=== PATIENT | female | born 1965 | race Caucasian/White ===

== ENCOUNTER 2017-02-20 10:49 | Inpatient (IN) | payer BC ==
[~2017-02-20] VITALS: Ht 167.6 cm; Wt 83.9 kg
[~2017-02-20 10:49] MED LIST: ATIVAN1 MG PO; COL250 PO; COLACE100 MG; COLACE100 MG PO; FLE10 PO; KEFLEX250 MG PO; LAC PO; LEVAQUIN250 MG PO; LORAZEPAM0.5 MG PO; METHADONE HCL5 MG PO; NOR10T PO; NORCO1 TA2 PO; PERCOCET1 TA2 PO; SERTRALINE HYDR25 MG PO; XARELTO10 M1 PO; XARELTO20 M1 PO
[2017-02-20 12:00] LABS: BASOPHIL % 0.3 % (0-2); PLATELET COUNT 208 x10^3mcL (130-400); RED CELL DISTRIBUTION WIDTH 13.4 % (11.5-14.5)
[2017-02-20 12:10] LABS: CALCIUM 9.6 mg/dL (8.5-10.1); CHLORIDE SERUM 104 mmol/L (98-107); GFR1 > 60 mL/min; GLUCOSE SERUM 105 mg/dL (74-106); POTASSIUM SERUM 4.3 mmol/L (3.5-5.1); SODIUM SERUM 139 mmol/L (136-145)
[2017-02-20 12:16] LABS: ALBUMIN 4.4 g/dL (3.4-5.0); ALKALINE PHOSPHATASE 120 U/L (46-116); ALT/SGPT 43 U/L (14-59); AMYLASE 101 U/L (25-115); AST/SGOT 33 U/L (15-37); BILIRUBIN TOTAL 0.49 mg/dL (0.20-1.00); LIPASE 116 IU/L (73-393)
[2017-02-20 12:20] LABS: TOTAL PROTEIN, SERUM 9.4 g/dL (6.4-8.2)
[2017-02-20] MEDS ORDERED: LACTULOSE10 GM/152 PO (14:16)
[2017-02-20] MEDS ORDERED: NOR10T PO (14:16)
[2017-02-20 14:45] VITALS: BP 118/80
[2017-02-20 18:01] VITALS: BP 134/69
[2017-02-20 18:05] LABS: CHOLESTEROL/HDL RATIO 3.5
[2017-02-20 18:35] LABS: FREE T4 1.27 ng/dL (0.76-1.46); FREE THYROXINE INDEX 2.5 ug/dL (1.4-4.5)
[2017-02-20 18:48] LABS: T3 TOTAL 1.11 ng/mL
[2017-02-20 21:02] VITALS: BP 98/66
[2017-02-21 01:56] LABS: microscopic required? YES; urine erythrocyte TRACE (NEGATIVE)
[2017-02-21 02:17] LABS: AMPHETAMINE QUAL UR NONE DETECTED (NEG <=1000)
[2017-02-21 04:30] VITALS: BP 108/62
[2017-02-21 06:21] LABS: CALCIUM 8.6 mg/dL (8.5-10.1); CARBON DIOXIDE 26.2 mmol/L (21-32); CHLORIDE SERUM 109 mmol/L (98-107); GFR1 > 60 mL/min; GLUCOSE SERUM 102 mg/dL (74-106); MAGNESIUM 2.3 mg/dL (1.8-2.4); PHOSPHOROUS 3.8 mg/dL (2.5-4.9); POTASSIUM SERUM 4.2 mmol/L (3.5-5.1); SODIUM SERUM 142 mmol/L (136-145)
[2017-02-21 06:29] LABS: BASOPHIL % 0.3 % (0-2); PLATELET COUNT 161 x10^3mcL (130-400); RED CELL DISTRIBUTION WIDTH 13.9 % (11.5-14.5)
== END 2017-02-21 08:09 | disposition left against medical advice (07) | DRG 388 ==
LOC: ED 10:49 → DU 13:25
PROVIDERS: Emergency Medicine; ADMIT Family Medicine
DX: K56.60 Unspecified intestinal obstruction (principal); N17.0 Acute kidney failure with tubular necrosis; K56.41 Fecal impaction; G89.29 Other chronic pain; Z90.710 Acquired absence of both cervix and uterus; Z86.718 Personal history of other venous thrombosis and embolism; Z95.0 Presence of cardiac pacemaker; Z88.6 Allergy status to analgesic agent; Z88.8 Allergy status to other drugs, medicaments and biological substances; Z83.3 Family history of diabetes mellitus; Z82.49 Family history of ischemic heart disease and other diseases of the circulatory system; Z80.3 Family history of malignant neoplasm of breast
CPT/HCPCS: 83880; 84439; J1170; J2405; J2550; J2765; J3010; J7030; Q0092

== ENCOUNTER 2017-06-30 17:17 | Inpatient (IN) | payer BC ==
[~2017-06-30] VITALS: Ht 167.6 cm; Wt 88.0 kg
[~2017-06-30 17:17] MED LIST changes: +LACTULOSE10 GM/152 PO
[2017-06-30 17:54] LABS: CALCIUM 9.7 mg/dL (8.5-10.1); CARBON DIOXIDE 31.9 mmol/L (21-32); CREATININE SERUM 1.1 mg/dL (0.6-1.0); POTASSIUM SERUM 4.2 mmol/L (3.5-5.1)
[2017-06-30 17:59] LABS: BILIRUBIN TOTAL 0.5 mg/dL (0.20-1.00)
[2017-06-30 18:08] LABS: PLATELET COUNT 230 x10^3mcL (130-400)
[2017-06-30 18:16] LABS: TOTAL PROTEIN, SERUM 8.6 g/dL (6.4-8.2)
[2017-06-30 18:18] LABS: BASOPHIL % 0 % (0-2)
[2017-06-30 20:26] LABS: CHOLESTEROL/HDL RATIO 3.7; MAGNESIUM 2.3 mg/dL (1.8-2.4); PHOSPHOROUS 3.7 mg/dL (2.5-4.9)
[2017-06-30 20:33] LABS: T3 TOTAL 1.08 ng/mL
[2017-06-30 20:53] LABS: FREE T4 2.18 ng/dL (0.76-1.46); FREE THYROXINE INDEX 3.1 ug/dL (1.4-4.5)
[2017-06-30 21:16] VITALS: BP 97/52
[2017-07-01 04:51] VITALS: BP 98/56
[2017-07-01 06:11] LABS: CALCIUM 8.7 mg/dL (8.5-10.1); CARBON DIOXIDE 29.7 mmol/L (21-32); CHLORIDE SERUM 108 mmol/L (98-107); GFR1 > 60 mL/min; GLUCOSE SERUM 98 mg/dL (74-106); MAGNESIUM 2.1 mg/dL (1.8-2.4); PHOSPHOROUS 3.6 mg/dL (2.5-4.9); POTASSIUM SERUM 3.8 mmol/L (3.5-5.1); SODIUM SERUM 143 mmol/L (136-145)
[2017-07-01 06:29] LABS: BASOPHIL % 0.1 % (0-2); PLATELET COUNT 216 x10^3mcL (130-400)
== END 2017-07-01 06:15 | disposition left against medical advice (07) | DRG 392 ==
LOC: ED 17:17 → DU 19:32
PROVIDERS: Emergency Medicine; ADMIT Family Medicine Sports Medicine
DX: R10.9 Unspecified abdominal pain (principal); Z90.710 Acquired absence of both cervix and uterus; Z83.3 Family history of diabetes mellitus; Z82.49 Family history of ischemic heart disease and other diseases of the circulatory system; E78.5 Hyperlipidemia, unspecified; E66.3 Overweight; Z68.31 Body mass index [BMI] 31.0-31.9, adult
CPT/HCPCS: 83880; 84439; 90658; J1170; J1200; J2405; J2765; J7030; Q9967

== ENCOUNTER 2019-09-13 01:41 | Inpatient (IN) | payer MEDICAID ==
[~2019-09-13] VITALS: Ht 167.6 cm; Wt 82.6 kg
[2019-09-13 01:42] VITALS: Ht 167.6 cm; Wt 82.6 kg
--- NOTE | 2019-09-13 01:58 | NUR ---
PT PRESENTS TO ED WITH C/C GENERALIZED CONSTANT ABD PAIN WITH "ROLLING WAVES OF PAIN." PATIENT UNABLE TO DESCRIBE TYPE OF PAIN BUT STATES IT IS 10/10 AND STRONG. PT REPORTS HX OF BOWEL BLOCKAGE. STS LAST TIME IT OCCURED WAS APPROX 1 YEAR AGO. PT REPORTS HX OF SEVERAL ABD SURGERIES. PT REPORTS NAUSEA AND VOMITING XAPPROX 5 TIMES. LAST BM WAS YESTERDAY AND SOFT. DENIES URINARY SYMPTOMS. DENIES FEVER. DENIES RECENT ILLNESS. TENDERNESS UPON PALPATION NOTED TO LLQ. CONNECTED TO MONITOR. DR JUNG AT BEDSIDE FOR MSE.
--- NOTE | 2019-09-13 02:02 | NUR ---
PT INSTRUCTED TO PROVIDE URINE ARMANDO. PT HAD FULL HYSTERECTOMY. MEDICATED WITH TORADOL AND ZOFRAN ORDERED. SEE EMAR.
--- NOTE | 2019-09-13 02:04 | NUR ---
PATIENT TAKEN TO CT. ERANFRRYAN ERICKSON BROUGHT TO BEDSIDE UPON PATIENT REQUEST.
--- NOTE | 2019-09-13 02:16 | NUR ---
LAB AT BEDSIDE.
[2019-09-13 02:36] LABS: BASOPHIL % 0.1 % (0-2); PLATELET COUNT 260 x10^3mcL (130-400); RED CELL DISTRIBUTION WIDTH 13.6 % (11.5-14.5)
[2019-09-13 03:25] LABS: CALCIUM 8.9 mg/dL (8.5-10.1); CARBON DIOXIDE 29.6 mmol/L (21-32); CREATININE SERUM 1.2 mg/dL (0.6-1.0)
[2019-09-13 03:29] LABS: ALBUMIN 3.7 g/dL (3.4-5.0); BILIRUBIN TOTAL 0.49 mg/dL (0.20-1.00)
[2019-09-13 03:30] LABS: TOTAL PROTEIN, SERUM 8.3 g/dL (6.4-8.2)
--- NOTE | 2019-09-13 03:47 | NUR ---
PT ASSISTED TO RESTROOM. TO PROVIDE URINE SAMPLE AT THIS TIME. STS PAIN IS MUCH BETTER, 11/05. DR JUNG AWARE.
--- NOTE | 2019-09-13 04:24 | NUR ---
XRAY AT BEDSIDE.
--- NOTE | 2019-09-13 04:31 | NUR ---
RECEIVED REPORT FROM ER NURSEHEATH. AWAITING FOR PT ARRIVAL.
--- NOTE | 2019-09-13 04:34 | NUR ---
REPORT GIVEN TO ZULAY SANCHES TO ASSUME CARE.
--- NOTE | 2019-09-13 05:01 | NUR ---
RECEIVED PT FROM ER VIA JAUN ACCOMPANIED BY TWO NURSES AND SIGNIFICANT OTHER WITH ALL OF PTS BELONGINGS. PT IS AAOX4. SPEECH IS CLEAR. C/O FUENTES. PT IN DISTRESS, C/O 07/05 SHARP ABD PAIN. WILL MAKE DR AWARE. MED-SURG PT. DENIES CP. PULSES ARE PALPABLE. NO EDEMA PRESENT. BREATHING IS EVEN AND UNLABORED ON RA. LUNG SOUNDS CTA. NO RESP. DISTRESS. ABD IS SOFT AND NONDISTENDED. PAIN WITH PALPITATION. LAST BM 09/12. C/O N/V. PT STATED SHE VOMITTED X2 PRIOR TO ARRIVING TO ED, X5 WHILE IN THE ER. EMESIS LIGHT BROWN APPEARANCE TO IT. VOIDS FREELY. DENIES DYSURIA. AMBULATORY. SKIN INTACT. IV TO LAC 20G DRY AND INTACT. NO ERYTHEMA NOTED. BED IN LOWEST POSITION. CALL LIGHT WITHIN REACH. ORIENTED PT TO ROOM AND SURROUNDINGS. WILL CONTINUE TO MONITOR.
[2019-09-13 05:08] LABS: CHOLESTEROL/HDL RATIO 3.1; MAGNESIUM 2.4 mg/dL (1.8-2.4); PHOSPHOROUS 3.5 mg/dL (2.5-4.9)
[2019-09-13 05:26] LABS: urine erythrocyte NEGATIVE (NEGATIVE)
[2019-09-13 05:36] LABS: microscopic required? YES
[2019-09-13 05:48] LABS: AMPHETAMINE QUAL UR POSITIVE (See below)
--- NOTE | 2019-09-13 05:51 | NUR ---
PT C/O 10/10 SHARP ABD PAIN. NO PAIN MEDICATION AVAILABLE AT THIS TIME. DR BONILLA MADE AWARE, AWAITING ORDERS.
--- NOTE | 2019-09-13 06:16 | NUR ---
MEDICATED PT WITH TORADOL 30MG IV ONCE PER NOV ORDER. EMESIS X1. WILL MEDICATE WITH ZOFRAN 4MG PRN PER NOV ORDER. WILL REASSESS AND CHECK FOR EFFECTIVENESS. SIGNIFICANT OTHER AT BEDSIDE. BED IN LOWEST POSITION. CALL LIGHT WITHIN REACH. WILL CONTINUE TO MONITOR AND ENDORSE CARE TO DAY SHIFT NURSE.
[2019-09-13 06:49] VITALS: BP 147/77
--- NOTE | 2019-09-13 08:00 | NUR ---
ALERT AND ORIENTED. WANTING TO SLEEP. NPO FOR SURGICAL CONSULT AND SMALL BOWEL FOLLOW THROUGH. BREATHING FREELY ON RA. C/O UPPER ABD PAIN ROLLING. HAVING NAUSEA. RECEIVED ZOFRAN AND TORADOL WITH LITTLE EFFECT. NS INFUSING 125 CC HOUR.SIGNIFICANT OTHER AT BEDSIDE. INDEPENDENT W ADL'S. BRP. CALL LIGHT WITHIN REACH BED IN LOW POSITION.
--- NOTE | 2019-09-13 08:40 | NUR ---
IV HL'D. PT LEFT VIA WHEELCHAIR FOR SMALL BOWEL FOLOW THROUGH. C/O ABD PAIN. MAKING ROUNDS. WILL SPEAK WITH HIM ABOUT PAIN MANAGEMENT.
[2019-09-13 08:59] VITALS: BP 149/66
--- NOTE | 2019-09-13 09:51 | NUR ---
PT BACK IN ROOM MEDICATED FOR PAIN AND NAUSEA. REFRIGERATOR CRATER. HERE TO CONTINUE SB SERIES.
--- NOTE | 2019-09-13 13:12 | NUR ---
PT WANTS PAIN MEDICATIION BEFORE ATTEMPTING TO HAVE NGT INSERTION. PT TOO DROWSY TO GIVE MORE MEDICATION. ONGOING SMALL BOWEL FOLLOW THROUGH.
[2019-09-13 14:08] VITALS: BP 149/86
--- NOTE | 2019-09-13 14:55 | NUR ---
NGT 14 DIVEHI INSERTED. KUB TAKEN. PT CONTINUES TO VOMIT GREENISH FLUID AND C/O ABD PAIN. ADMIN DILAUDID 0.5 MG IV
--- NOTE | 2019-09-13 15:18 | NUR ---
SEEN BY DR. NOLBERTO BURNS. REQUESTED NGT BE HOOKED UP TO LOW INTERMITTENT SUCTION. STARTED DIRECTED.T.C. TO RADIOLOGY TO INFORM STARTED ON SUCTION. DR. BURNS WANTS PT TRANSFERED TO [facility] FOR SURGERY/HIGHER LEVEL OF CARE.DR. BURNS SPOKE WITH DR. FRANCIS AND HE IS IN AGREEMENT.
--- NOTE | 2019-09-13 15:48 | NUR ---
SLEEPING RESTFULLY AFTER RECEIVING DILAUDID 0.5 MG IV. SIGNIFICANT OTHER RYAN AT BEDSIDE.
[2019-09-13 17:07] VITALS: BP 120/81
--- NOTE | 2019-09-13 19:10 | NUR ---
SLEEPING AFTER RECEIVING DILAUDID 0.5 MG IV FOR CONSTANT ABD PAIN. NGT TO LOW CONTINUOUS SUCTION. SMALL BOWEL FOLLOW THROUGH COMPLETED. KUB TONIGHT 2300 AND TOMORROW 0600 TO SEE IF CONTRAST HAS GONE THROUGH YET. VSS. NPO EXCEPT MEDS. GIVEN SM AMT ICE CHIPS.1000 CC GREENISH/LIGHT BROWN FLUID IN CANISTER. BRP. CALL LIGHT WITHIN REACH. NEW CONSULT ORDER FOR DR. CHAKRABORTY. HASNT SEEN PT YET.
--- NOTE | 2019-09-13 19:16 | NUR ---
Received a call from [place] case picker @ [facility] stating IF patient is a prisoner then they have to accept patient but patient is in [facility].
--- NOTE | 2019-09-13 19:45 | NUR ---
RECEIVED PT FROM AM NURSE, ELIS, ZULAY. PT LAYING DOWN IN BED WITH FAMILY AT BEDSIDE. PT AAOX4, ABLE TO FOLLOW COMMANDS AND MAKE NEEDS KNOWN. MED-SURG, DENIES CP/PRESSURE AT THIS TIME. LUNG SOUNDS CTA. BREATHING EVEN AND UNLABORED. NO RESP DISTRESS NOTED. ABD SOFT WITH HYPOACTIVE BS. PT STATES TENDERNESS TO PALPATION. NGT TO LOW CONT SUCTION AT THIS TIME. DRAINING GREEN LIQUID. PT C/O 07/05 ABD PAIN WITH NO ALLEVIATING FACTORS. VOIDS FREELY, BRP. AMBULATORY. IV TO LAC INFUSING NS AT 125MLHR. NO ACUTE DISTRESS NOTE. BED AT LOWEST SETTING. SIDE RAILS X2 UP. CALL LIGHT WHITHING REACH. WILL CONT TO MONITOR.
--- NOTE | 2019-09-13 20:20 | NUR ---
PT C/O 07/05 ABD PAIN, DILAUDID NOT DUE AT THIS TIME. PT MEDICATED WITH TORADOL PER NOV. WILL CONT TO MONITOR.
[2019-09-13 20:24] VITALS: BP 121/80
--- NOTE | 2019-09-13 22:35 | NUR ---
PT C/O 07/05 ABD PAIN AND N/V. NO ALLEVIATING FACTORS. MEDICATED WITH PRN DILAUDID AND ZOFRAN PER NOV. WILL CONT TO MONITOR.
--- NOTE | 2019-09-14 00:05 | NUR ---
PT SLEEPIG COMFORTABLY AT THIS TIME, BREATHING EVEN AND UNLABORED ON RA. NO ACUTE DISTRESS NOTED. BED AT LOWEST SETTING. SIDE RAILS X2 UP. CALL LIGHT WITHING REACH. WILL CONT TO MONITOR.
--- NOTE | 2019-09-14 03:00 | NUR ---
PT C/O 07/05 ABD PAIN, NO ALLEVIATING FACTORS. MEDICATED WITH PRN DILAUDID PER NOV. NO ACUTE DISTRESS NOTED. WILL CONT TO MONITOR.
[2019-09-14 05:25] VITALS: BP 100/64
--- NOTE | 2019-09-14 06:20 | NUR ---
PT SLEPT AT INTERVALS THROUGHOUT THE NIGHT, BREATHING EVEN AND UNLABORED ON RA. PT CONT TO COMPLAINT OF ABD PAIN. PT ASKING FOR ICE CHIPS, EDUCATED PT SHE IS NPO DUE TO POSSIBLE SX AND SHE SHOULD REMAIN NPO. PT STATES UNDERSTANDING. NGT CONNECTED TO CONT SUCTION, EMPIED 800CC FROM CANISTER OF GREEN LIQUID. CANISTER REPLACED. ALL NEEDS ASSESSED AND ATTENDED TO. BED AT LOWEST SETTING. SIDE RAILS X2 UP. NO ACUTE DISTRESS NOTED. CALL LIGHT WITHING REACH. WILL CONT TO MONITOR AND ENDORSE CARE TO AM NURSE.
[2019-09-14 06:32] LABS: BASOPHIL % 0.3 % (0-2); PLATELET COUNT 239 x10^3mcL (130-400); RED CELL DISTRIBUTION WIDTH 14.1 % (11.5-14.5)
[2019-09-14 06:47] LABS: CALCIUM 8.8 mg/dL (8.5-10.1); CARBON DIOXIDE 29.2 mmol/L (21-32); CREATININE SERUM 1.4 mg/dL (0.6-1.0); POTASSIUM SERUM 4.5 mmol/L (3.5-5.1)
--- NOTE | 2019-09-14 08:00 | NUR ---
RECEIVED PATIENT WAS SLEEPING. AROUSABLE. ORIENTED X4. NO C/O ABD PAIN NOW. PACE MAKER TO LT UPPER CHEST. PULSE = 75. BREATHING SOUND CLEAR, NO RESP DISTRESS ON RA. ABD ROUND/SOFT. BOWEL SOUND ACTIVE. LAST BM 09/12. NPO. ON L/I SUCTION VIA NGT. LIGHT BROWN DRAINAGE 100 CC FROM 6AM TO 7AM. NO INCREASING AFTER 7AM. IVF OF NS 125CC/HR. IV SITE TO LAC INTACT. CALL LIGHT IN REACH.
[2019-09-14 08:33] VITALS: BP 107/63
--- NOTE | 2019-09-14 11:00 | NUR ---
DR. BILLS CAME TO SEE PATIENT. ORDER OF D/C NGT CARRIED OUT. TOTAL 100CC OF LIGHT BROWN DRAINAGE COLLECTED FROM NGT SUCTION. IVF OF NS CHANGED TO 80CC/HR. NEW ORDERS GIVEN.
--- NOTE | 2019-09-14 11:40 | NUR ---
REPORTED TO DR. FRANCIS - DR. BILLS SURGICAL CONSULTATION DONE. STAT KUB DONE. NGT D/C'D. PATIENT WAS ON CLEAR LIQUID DIET NOW. LAXATIVES GIVEN. TELEPHONE ORDER OF DULCOLAS SUPP. AND CONTINUED TO HOLD ELIQUIS FOR POSIBLE SURGERY IF PATIENT CANNOT TOLERATE CLEAR LIQUID DIET PER DR. FRANCIS.
--- NOTE | 2019-09-14 12:37 | NUR ---
DULCOLAX SUPP GIVEN. REPORT GIVEN TO WILNER RN FOR CONTINUE CARE.
[2019-09-14 12:49] VITALS: BP 111/56
--- NOTE | 2019-09-14 13:02 | NUR ---
Report received from ZULAY Tabor. Patient in stable condition. Will continue to monitor.
--- NOTE | 2019-09-14 14:13 | NUR ---
PATIENT SLEEPING IN BED. HAD ONE URINATION AND ONE BM SINCE THE SUPPOSITORY ADMINISTERED.
--- NOTE | 2019-09-14 14:20 | NUR ---
DELANEY SARABIA. 09/13/19 AT 1300-[facility] CARD AND LIST [facility] GIVEN PATIENT BY Jenna BOSE.
[2019-09-14 16:29] VITALS: BP 126/94
--- NOTE | 2019-09-14 17:43 | NUR ---
Dr. Sandra Moeller notified of patient's request to leave. Physician suggestion for her to stay to monitor if she can tolerate solid foods. Relayed information to patient. Will continue to monitor.
--- NOTE | 2019-09-14 18:00 | NUR ---
PATIENT LEFT AGAINST MEDICAL ADVICE AT 1800. DR. EKATERINA FRANCIS NOTIFIED. RISKS AND BENEFITS OF LEAVING AMA EXPLAINED TO PATIENT. NO SIGNS OF DISTRESS NOTED FOR PATIENT. LUPE, ED, PRESENT AT BEDSIDE AND WALKED PATIENT FROM HOSPITAL TO CAR.
== END 2019-09-14 18:00 | disposition left against medical advice (07) | DRG 247 ==
LOC: ED 01:41 → MU 04:11
PROVIDERS: Emergency Medicine; ADMIT Family Medicine
DX: K56.600 Partial intestinal obstruction, unspecified as to cause (principal); N17.0 Acute kidney failure with tubular necrosis; Z86.74 Personal history of sudden cardiac arrest; I82.501 Chronic embolism and thrombosis of unspecified deep veins of right lower extremity; D72.829 Elevated white blood cell count, unspecified; I44.30 Unspecified atrioventricular block; F41.9 Anxiety disorder, unspecified; F15.10 Other stimulant abuse, uncomplicated; F12.10 Cannabis abuse, uncomplicated; F43.20 Adjustment disorder, unspecified; Z53.29 Procedure and treatment not carried out because of patient's decision for other reasons; Z95.0 Presence of cardiac pacemaker; Z95.828 Presence of other vascular implants and grafts; Z86.711 Personal history of pulmonary embolism; Z85.41 Personal history of malignant neoplasm of cervix uteri; Z68.26 Body mass index [BMI] 26.0-26.9, adult; Z82.49 Family history of ischemic heart disease and other diseases of the circulatory system; Z83.3 Family history of diabetes mellitus; Z80.3 Family history of malignant neoplasm of breast
CPT/HCPCS: 90658; G0378; J1170; J1885; J2405; J2550; J7030; Q0092; Q9967